=== PATIENT | male | born 1950 | race Caucasian/White ===

== ENCOUNTER → 2019-03-17 08:23 | Outpatient (CLI) | payer MEDICARE, SELFPAY ==
[2019-03-17 10:54] LABS: Alanine Aminotransferase 20 IU/L (21-72); Albumin 4.1 g/dL (3.5-5.0); Albumin Globulin Ratio 1.3 (1.0-2.8); Alkaline Phosphatase 63 U/L (38-126); Aspartate Aminotransferase 29 IU/L (17-59); Bilirubin Total 0.7 mg/dL (0.2-1.3); Blood Urea Nitrogen 23 mg/dL (9-20); Calcium 9.4 mg/dL (8.4-10.2); Carbon Dioxide 30 mmol/L (22-32); Chloride 103 mmol/L (98-107); Cholesterol 195 mg/dL (140-199); Estimated Glomerular Filt Rate > 60.0 mL/min (>60); Globulin 3.2 g/dL (1.7-4.1); Glucose 96 mg/dL (80-110); HDL Cholesterol 58 mg/dL (40-60); HEMOLYSIS < 15 (0-50); LDL Cholesterol Calculated 123 mg/dL (<100); Potassium 4.5 mmol/L (3.4-5.1); Sodium 139 mmol/L (137-145); Total Protein 7.3 g/dL (6.3-8.2); Triglycerides 70 mg/dL (35-150)
== END ==
PROVIDERS: PCP Internal Medicine; Visit Provider Hospitalist
DX: N40.0 Benign prostatic hyperplasia without lower urinary tract symptoms (principal)
CPT/HCPCS: 36415; 80053; 80061

== ENCOUNTER → 2020-07-08 11:00 | Outpatient (CLI) | payer MEDICARE, SELFPAY ==
[2020-07-08] MEDS: COVID-19 VACC #1, MRNA(MOD) 100 MCG/0.5 ML VIAL IM (11:08)
== END ==
PROVIDERS: PCP Internal Medicine; Visit Provider Internal Medicine
DX: Z23 Encounter for immunization (principal)
CPT/HCPCS: 0011A; 91301

== ENCOUNTER → 2020-08-05 11:57 | Outpatient (CLI) | payer MEDICARE, SELFPAY ==
[2020-08-05] MEDS: COVID-19 VACC #2, MRNA(MOD) 100 MCG/0.5 ML VIAL IM (12:10)
== END ==
PROVIDERS: PCP Internal Medicine; Visit Provider Internal Medicine
DX: Z23 Encounter for immunization (principal)
CPT/HCPCS: 0012A; 91301

== ENCOUNTER → 2022-03-08 09:53 | Outpatient (CLI) | payer MEDICARE, SELFPAY ==
[2022-03-08 11:50] LABS: Hemoglobin 14.2 g/dL (13.5-17.5); Mean Corpuscular Volume 90.8 fL (80-100); Platelet Count 192 X10^3/uL (150-400); Red Blood Cell Count 4.74 X10^6/uL (4.5-5.9); Red Cell Distribution Width 13.8 % (11.6-14.8); White Blood Cell Count 6.4 X10^3/uL (4.5-11.0)
[2022-03-08 12:31] LABS: HEMOLYSIS < 15 (0-50); Iron 78 ug/dL (49-181)
[2022-03-08 12:36] LABS: C-Reactive Protein Quant < 0.5 mg/dL (<1.0)
[2022-03-08 12:41] LABS: Percent Iron Saturation 21 % (20-50); Total Iron Binding Capacity 376 ug/dL (261-462); Transferrin 288 mg/dL (206-381)
[2022-03-08 13:06] LABS: Ferritin 40 ng/mL (18-464)
== END ==
PROVIDERS: PCP Internal Medicine; Referring Provider Nurse Practitioner Family; Visit Provider Nurse Practitioner Family
DX: R19.4 Change in bowel habit (principal); K62.5 Hemorrhage of anus and rectum
CPT/HCPCS: 36415; 82728; 83540; 83550; 85027; 86140